=== PATIENT | male | born 1945 | race Caucasian/White ===

== ENCOUNTER 2017-08-09 11:15 | Day surgery (SDC) | payer MEDICARE ==
[~2017-08-09 11:15] MED LIST: Acetaminophen TAB* 325 MG PO PRN; Buffered Lidocaine 0.9% SYRIN* 5 ML/SYR SYRINGE INTRADERM ONE; Buffered Lidocaine 0.9% SYRIN* 5 ML/SYR SYRINGE ONE; Cyclopentolate 1% OPTH.SOL* 2 ML BTL ONE; Ketorolac 0.5% OPHTH (NF) 0.5 % 5 ML BTL ONE; Lidocaine 1% MPF* 2 ML VIAL ONE; Lidocaine 2% EPI 1:200000 MPF* 20 ML VIAL ONE; Neomycin/Polymy/Dex OPTH.SUSP* MAXITROL 0.1% 5 ML ONE; Phenylephrine 2.5% OPTH.SOL* 2 ML BTL ONE; Povidone Iodine 5% OPTH* 30 ML BTL ONE; Proparacaine 0.5% OPHTH.SOL* 15 ML BTL ONE; acetaZOLAMIDE TAB* 250 MG ONE
[2017-08-09] MEDS ORDERED: fentaNYL* 50 MCG/ML 2 ML VIAL (100 MCG VIAL) ONE (14:01)
[2017-08-09] MEDS ORDERED: Midazolam* 1 MG/ML 5 ML VIAL (5 MG) ONE (14:01)
[2017-08-09 14:45] VITALS: BP 114/64
--- NOTE | 2017-08-09 16:52 | OP ---
DATE OF OPERATION: 08/09/2017 - [facility] DATE OF : 1945. SURGEON: Don Cherry M.D. PREOPERATIVE DIAGNOSIS: Cataract right eye. POSTOPERATIVE DIAGNOSIS: Cataract right eye. OPERATIVE PROCEDURE: Phacoemulsification right eye with IOL. DESCRIPTION OF PROCEDURE: The patient was brought to the operating room after being given 1/2% Alcaine with epinephrine drops in the preoperative area. The eye was prepped and draped in the usual sterile fashion. Sterile drape and eyelid speculum were placed. Again, topical 1/2% Alcaine with epinephrine was given. A paracentesis incision was made at the 9 o'clock position with the No.75 blade. Clear cornea incision 2.2 x 2.2-mm was created at the 12 o'clock position starting at the anterior limbus using the 2.2-mm keratome. The anterior chamber was irrigated with 0.4 mL of 1% non-preservative intracameral lidocaine and filled with DisCoVisc. A capsulorrhexis was completed using the cystotome and the Utrata forceps. Hydrodissection was performed with balanced salt solution. The lens nucleus was removed with the Phacoemulsification handpiece without incident. Cortex was removed with the irrigation-aspiration handpiece. The capsular bag was re-inflated using DisCoVisc and an [id number] 20.5 implant was inserted with the shooter, oriented to the 136 degree meridian. Horizontal reference johnson were made with the patient in the seated position in the preoperative area. The irrigation-aspiration handpiece was used to remove all residual DisCoVisc. The eye was refilled with balanced salt solution and the wound checked and found to be watertight. Topical Maxitrol drops were given. [id number]/[facility] #: [id number] [facility]
== END 2017-08-09 15:00 | disposition home or self-care (01) ==
LOC: OREAST 11:15
PROVIDERS: ATTEND Specialist
DX: H25.813 Combined forms of age-related cataract, bilateral (principal); I25.84 Coronary atherosclerosis due to calcified coronary lesion; E78.00 Pure hypercholesterolemia, unspecified; I48.91 Unspecified atrial fibrillation
CPT/HCPCS: A9270-GY; J2250; J3010; V2787

== ENCOUNTER 2017-08-16 08:52 | Day surgery (SDC) | payer MEDICARE ==
[~2017-08-16 08:52] MED LIST changes: -Buffered Lidocaine 0.9% SYRIN* 5 ML/SYR SYRINGE ONE; -Cyclopentolate 1% OPTH.SOL* 2 ML BTL ONE; -Ketorolac 0.5% OPHTH (NF) 0.5 % 5 ML BTL ONE; -Lidocaine 1% MPF* 2 ML VIAL ONE; -Lidocaine 2% EPI 1:200000 MPF* 20 ML VIAL ONE; -Neomycin/Polymy/Dex OPTH.SUSP* MAXITROL 0.1% 5 ML ONE; -Phenylephrine 2.5% OPTH.SOL* 2 ML BTL ONE; -Povidone Iodine 5% OPTH* 30 ML BTL ONE; -Proparacaine 0.5% OPHTH.SOL* 15 ML BTL ONE; -acetaZOLAMIDE TAB* 250 MG ONE
[2017-08-16] MEDS ORDERED: Midazolam* 1 MG/ML 2 ML VIAL (2 MG) ONE (10:30)
[2017-08-16 11:46] VITALS: BP 123/76
[2017-08-16] MEDS ORDERED: Ketorolac 0.5% OPHTH (NF) 0.5 % 5 ML BTL ONE (11:56)
[2017-08-16] MEDS ORDERED: Neomycin/Polymy/Dex OPTH.SUSP* MAXITROL 0.1% 5 ML ONE (11:56)
[2017-08-16] MEDS ORDERED: acetaZOLAMIDE TAB* 250 MG ONE (11:56)
[2017-08-16] MEDS ORDERED: Phenylephrine 2.5% OPTH.SOL* 2 ML BTL ONE (11:56)
[2017-08-16] MEDS ORDERED: Povidone Iodine 5% OPTH* 30 ML BTL ONE (11:56)
[2017-08-16] MEDS ORDERED: Buffered Lidocaine 0.9% SYRIN* 5 ML/SYR SYRINGE ONE (11:56)
[2017-08-16] MEDS ORDERED: Lidocaine 1% MPF* 2 ML VIAL ONE (11:56)
[2017-08-16] MEDS ORDERED: Lidocaine 2% EPI 1:200000 MPF* 20 ML VIAL ONE (11:56)
[2017-08-16] MEDS ORDERED: Cyclopentolate 1% OPTH.SOL* 2 ML BTL ONE (11:56)
[2017-08-16] MEDS ORDERED: Proparacaine 0.5% OPHTH.SOL* 15 ML BTL ONE (11:56)
--- NOTE | 2017-08-16 13:01 | OP ---
DATE OF OPERATION: 08/16/2017 - [facility] DATE OF : 1945. SURGEON: Don Cherry M.D. PREOPERATIVE DIAGNOSIS: Cataract left eye. POSTOPERATIVE DIAGNOSIS: Cataract left eye. OPERATIVE PROCEDURE: Phacoemulsification left eye with IOL. DESCRIPTION OF PROCEDURE: The patient was brought to the operating room after being given 1/2% Alcaine with epinephrine drops in the preoperative area. The eye was prepped and draped in the usual sterile fashion. Sterile drape and eyelid speculum were placed. Again, topical 1/2% Alcaine with epinephrine was given. A paracentesis incision was made at the 3 o'clock position with the No.75 blade. Clear cornea incision 2.2 x 2.2-mm was created at the 6 o'clock position starting at the anterior limbus using the 2.2-mm keratome. The anterior chamber was irrigated with 0.4 mL of 1% non-preservative intracameral lidocaine and filled with DisCoVisc. A capsulorrhexis was completed using the cystotome and the Utrata forceps. Hydrodissection was performed with balanced salt solution. The lens nucleus was removed with the Phacoemulsification handpiece without incident. Cortex was removed with the irrigation-aspiration handpiece. The capsular bag was re-inflated using DisCoVisc and an [id number] implant was inserted with the shooter, oriented to the 45 degree meridian. Horizontal reference johnson were made with the patient in the seated position in the preoperative area. The irrigation-aspiration handpiece was used to remove all residual DisCoVisc. The eye was refilled with balanced salt solution and the wound checked and found to be watertight. Topical Maxitrol drops were given. [id number]/[facility] #: [id number] [facility]
== END 2017-08-16 11:39 | disposition home or self-care (01) ==
LOC: OREAST 08:52
PROVIDERS: ATTEND Specialist
DX: H25.812 Combined forms of age-related cataract, left eye (principal); Z96.1 Presence of intraocular lens; I48.91 Unspecified atrial fibrillation; E78.00 Pure hypercholesterolemia, unspecified; I25.84 Coronary atherosclerosis due to calcified coronary lesion
CPT/HCPCS: A9270-GY; J2250; V2787

== ENCOUNTER 2018-05-06 20:04 | Emergency (ER) | payer MEDICARE ==
[2018-05-06] MEDS ORDERED: HYDROcodone/ACETAMIN 5-325 MG* 1 TAB ONE (20:16)
[2018-05-06 20:18] VITALS: BP 158/97
[2018-05-06] MEDS ORDERED: HYDROcodone/ACETAMIN 5-325 MG* 1 TAB PO ONE (20:21)
--- NOTE | 2018-05-06 20:27 | UC ---
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 THINKS HE HAD LOC BUT NOT SURE FOR HOW LONG. HAS A LACERATION AND SIGNIFICANT SWELLING RIGHT UPPER BROW. PT ENDORSES SIGNIFICANT ALMONTE, NAUSEA, POSTERIOR NECK PAIN. DENIES VISUAL DISTURBANCE. AFTER THE INCIDENT PT DROVE HIMSELF THE 3 MILES FROM THE FARM TO HIS HOUSE, THEN HAD A FRIEND DRIVE HIM HERE TO THE . HAS A H/O AFIB BUT IS NON ADHERENT WITH HIS MEDS. NOT TAKING BLOOD THINNER. UNKNOWN DATE OF LAST TETANUS. 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 HAD THE CURTAIN PIPE IN A VICE TRYING TO STRAIGHTEN IT WHEN IT SLIPPED OUT AND STRUCK HIM ON THE HEAD. NEXT THING HE KNEW HE WAS WAKING UP ON THE GROUND. - History Of Current Complaint Chief Complaint: UCHeadInjury Stated Complaint: HEAD INJURY Time Seen by Provider: 05/06/18 20:08 Hx Obtained From: Patient Onset/Duration: Sudden Onset, Lasting Minutes, Still Present Severity Currently: Moderate Severity Initially: Moderate Pain Intensity: 8 Pain Scale Used: 0-10 Numeric Character: Dull, Throbbing Aggravating Factor(s): Nothing Alleviating Factor(s): Nothing Associated Signs And Symptoms: Positive: LOC Duration Unknown, Neck Pain, Nausea. Negative: Confusion, Memory Loss, Seizure - Allergies/Home Medications Allergies/Adverse Reactions: Allergies Allergy/AdvReac Type Severity Reaction Status Date / Time No Known Allergies Allergy Verified 05/06/18 20:18 PMH/Surg Hx/FS Hx/Imm Hx Cardiovascular History: Atrial Fibrillation - Surgical History Surgical History: None Surgery Procedure, Year, and Place: BLADDER LESIONS REMOVED - Family History Known Family History: Positive: Hypertension - Social History Alcohol Use: Daily Alcohol Amount: 1.5 DRINKS PER DAY Substance Use Type: Marijuana Smoking Status (MU): Never Smoked Tobacco Have You Smoked in the Last Year: No Review of Systems Constitutional: Negative Skin: Other - LACERATION Respiratory: Negative Cardiovascular: Negative Gastrointestinal: Nausea Musculoskeletal: Arthralgia - NECK PAIN, Decreased ROM - NECK Neurological: Headache All Other Systems Reviewed And Are Negative: Yes Physical Exam Triage Information Reviewed: Yes Appearance: Ill-Appearing - MILDLY, Pain Distress - MODERATE, Signs of Trauma - BLEEDING LACERATION RIGHT BROW Vital Signs: Initial Vital Signs Temp 98.7 F 05/06/18 20:11 Pulse 67 05/06/18 20:11 Resp 17 05/06/18 20:11 BP 158/97 05/06/18 20:11 Pulse Ox 99 05/06/18 20:11 Vital Signs Reviewed: Yes Eyes: Positive: Conjunctiva Clear ENT: Positive: Hearing grossly normal, TMs normal, Other - CRUSTED BLOOD RIGHT NARIS. NO ACTIVE BLEEDING Neck: Positive: Other: - IN A COLLAR Respiratory Exam: Normal Cardiovascular Exam: Normal Cardiovascular: Positive: RRR Abdomen Description: Positive: Soft Musculoskeletal: Positive: ROM Limited @ - NECK, Other: - TTP RIGHT ORBITAL BONES Neurological: Positive: Alert Psychological: Positive: Age Appropriate Behavior Skin: Positive: Other - 3.2CM LINEAR LACERATION RIGHT BROW WITH SURROUNDING SOFT TISSUE SWELLING. Diagnostics - Radiology C-SPINE XRAY 1V Xray Interpretation: Positive (See Comments) - THE CERVICAL VERTEBRA APPEARS SLIGHTLY ANTERIOR RELATIVE TO THE POSITION OF THE CLIVUS AT THE SKULL BASE POSSIBLY REPRESENTING AN INJURY AT THE CRANIOCERVICAL JUNCTION. RECOMMEND A CT OF THE CERVICAL SPINE FOR FURTHER EVALUATION. Radiology Interpretation Completed By: Radiologist Head Injury Course/Dx - Course Course Of Treatment: C-SPINE UNABLE TO BE CLEARED WITHOUT CT SCAN. RECOMMENDED PATIENT GO TO THE [facility] [place] ED BY AMBULANCE DUE TO CONCERN FOR C-SPINE FRACTURE. PT DECLINES AMBULANCE TRANSFER. ADVISED THAT HE COULD BE RISKING WORSENING OF HIS CONDITION THAT COULD POSE A THREAT TO LIFE, HEALTH AND MEDICAL SAFETY. PT COULD HAVE PARALYSIS. PT VERBALIZES UNDERSTANDING AND CONTINUES TO DECLINE AMBULANCE TRANSFER. STATES HE WILL GO BY PRIVATE CAR. SIGNED OUT AMA. COLLAR IN PLACE. RECEIVED HYDROCODONE/APAP 5/325 AND TDAP BOOSTER IN UC. - Differential Dx/Diagnosis Provider Diagnoses: 1. NECK INJURY - POSSIBLE FRACTURE. 2. CONCUSSION. 2. LACERATION RIGHT BROW - NOT REPAIRED. 4. TDAP BOOSTER - Physician Notification/Consults Discussed Patient Care With: Marcy Quinonez - TO [facility] [place] [place] ED BY PRIVATE CAR - PT SIGNING OUT AMA Time Discussed With Above Provider: 09:47 Instructed by Provider To: MD Will See In ED Discharge - Sign-Out/Discharge Documenting (check all that apply): Discharge/Admit/Transfer - Discharge Plan Condition: Guarded Disposition: AGAINST MEDICAL ADVICE Referrals: Malcolm Pisano MD [Primary Care Provider] - - Billing Disposition and Condition Condition: GUARDED Disposition: Against Medical Advice
[2018-05-06] MEDS ORDERED: Tetan/Diph/Pertus SYR(Tdap)* 0.5 ML SYR(BOOSTRIX) use SYR IM ONE (20:30)
--- NOTE | 2018-05-06 21:31 | RAD ---
INDICATION: Head injury, neck pain. COMPARISON: There are no prior studies available for comparison. TECHNIQUE: 2 lateral films of the cervical spine were obtained. FINDINGS: C1-C7 are visualized. There is straightening of the cervical spine with loss of the normal cervical lordosis. No fracture is seen although the cervical vertebra appears slightly anterior relative to the position of the clivus and therefore an injury at the craniocervical junction cannot be excluded. Recommend a CT of the cervical spine for further evaluation. There is moderate to severe disc space narrowing and moderate uncinate process spurring present at the C3-C4, C4-C5, C5-C6 and C6-C7 levels consistent with moderate to severe degenerative disc disease. There are large bridging anterior osteophytes at the C4-C5 level. The results of this exam were discussed with the referring clinician. IMPRESSION: THE CERVICAL VERTEBRA APPEARS SLIGHTLY ANTERIOR RELATIVE TO THE POSITION OF THE CLIVUS AT THE SKULL BASE POSSIBLY REPRESENTING AN INJURY AT THE CRANIOCERVICAL JUNCTION. RECOMMEND A CT OF THE CERVICAL SPINE FOR FURTHER EVALUATION.
== END 2018-05-06 22:00 | disposition left against medical advice (07) ==
LOC: UCEAST 20:04
DX: S19.9XXA Unspecified injury of neck, initial encounter (principal); S06.0X9A Concussion with loss of consciousness of unspecified duration, initial encounter; S01.111A Laceration without foreign body of right eyelid and periocular area, initial encounter; W22.8XXA Striking against or struck by other objects, initial encounter; Y93.89 Activity, other specified; Y92.79 Other farm location as the place of occurrence of the external cause; Z23 Encounter for immunization; I48.91 Unspecified atrial fibrillation; Z82.49 Family history of ischemic heart disease and other diseases of the circulatory system
CPT/HCPCS: 72020; 90715; 99212; G0463

== ENCOUNTER 2018-05-06 22:06 | Emergency (ER) | payer MEDICARE ==
[2018-05-06] MEDS ORDERED: Ibuprofen ADULT LIQ* 600 MG/30 ML UDC PO ONE (22:49)
--- NOTE | 2018-05-07 00:42 | ED ---
Laceration/Wound HPI - HPI Summary HPI Summary: Patient is a 72-year-old male presenting to the ED from with complaint of laceration just above the right eye, with associated bruising and swelling. He states he was sent over here for a CT scan. 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 He states he had a brief LOC lasting only a few seconds and also is endorsing headache and neck pain. Bleeding is well controlled on arrival. History of A. fib, but is medication noncompliant. - History of Current Complaint Stated Complaint: HEAD/NECK INJURY Hx Obtained From: Patient Onset/Duration: Sudden Onset Aggravating: Movement Alleviating: Nothing Timing: Constant Onset Severity: Mild Current Severity: Mild Pain Intensity: 5 Pain Scale Used: 0-10 Numeric Associated Signs & Symptoms: Negative - Allergy/Home Medications Allergies/Adverse Reactions: Allergies Allergy/AdvReac Type Severity Reaction Status Date / Time No Known Allergies Allergy Verified 05/06/18 20:18 PMH/Surg Hx/FS Hx/Imm Hx Previously Healthy: Yes Endocrine/Hematology History: Denies: Hx Diabetes Cardiovascular History: Reports: Hx Coronary Artery Disease - SOME BLOCKAGES-, 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, Other Cardiovascular Problems/Disorders - HX AFIB Denies: Hx Congestive Heart Failure, Hx Hypertension, Hx Pacemaker/ICD Respiratory History: Reports: Hx Sleep Apnea Sensory History: Reports: Hx Cataracts - BILATERAL, Hx Contacts or Glasses - READING Denies: Hx Hearing Aid Opthamlomology History: Reports: Hx Cataracts - BILATERAL, Hx Contacts or Glasses - READING - Surgical History Surgery Procedure, Year, and Place: BLADDER LESIONS REMOVED Hx Anesthesia Reactions: Yes - TOOK A LONG TIME TO RECOVER Infectious Disease History: No Infectious Disease History: Denies: Traveled Outside the [place] in Last 30 Days - Family History Known Family History: Positive: Hypertension - Social History Occupation: Employed Full-time Lives: With Family Alcohol Use: Daily Alcohol Amount: 1.5 DRINKS PER DAY Hx Substance Use: Yes Substance Use Type: Reports: Marijuana Hx Tobacco Use: No Smoking Status (MU): Never Smoked Tobacco Have You Smoked in the Last Year: No Review of Systems Constitutional: Negative Negative: Fever, Chills, Skin Diaphoresis Negative: Palpitations, Chest Pain Negative: Shortness Of Breath, Cough Genitourinary: Negative Positive: no symptoms reported, see HPI Positive: Arthralgia - posterior cervical spine tenderness Positive: Other - 2.5cm laceration Positive: Headache Psychological: Normal All Other Systems Reviewed And Are Negative: Yes Physical Exam Triage Information Reviewed: Yes Vital Signs On Initial Exam: Initial Vitals Temp Pulse Resp BP Pulse Ox 98.3 F 56 20 184/84 98 05/06/18 22:07 05/06/18 22:07 05/06/18 22:07 05/06/18 22:07 05/06/18 22:07 Vital Signs Reviewed: Yes Appearance: Positive: Well-Appearing, Well-Nourished Skin: Positive: Warm, Skin Color Reflects Adequate Perfusion Head/Face: Positive: Normal Head/Face Inspection Neck: Positive: Supple, No Lymphadenopathy Respiratory/Lung Sounds: Positive: Clear to Auscultation, Breath Sounds Present Cardiovascular: Positive: RRR, Pulses are Symmetrical in both Upper and Lower Extremities Musculoskeletal: Positive: Normal, Strength/ROM Intact, Pain @ - Posterior cervical spine tenderness Neurological: Positive: Sensory/Motor Intact, Alert, Oriented to Person Place, Time, Speech Normal Psychiatric: Positive: Affect/Mood Appropriate AVPU Assessment: Alert Diagnostics - Vital Signs Vital Signs Temp Pulse Resp BP Pulse Ox 05/06/18 22:07 98.3 F 56 20 184/84 98 - Laboratory Lab Statement: Any lab studies that have been ordered have been reviewed, and results considered in the medical decision making process. Laceration Repair Course/Dx - Course Course Of Treatment: Patient was given a Vicodin prior to discharge from . He signed out AMA. He arrives in a cervical collar. Maxillofacial, cervical spine, brain CT obtained all within WNL. Laceration just above the right eye measuring 2.5 cm in length, 0.5 cm in depth and approximately 0.5 cm in width. Time out obtained. Lidocaine without epi used as local anesthetic. Patient tolerated well. 1 mL used. 7, 50 sutures placed using simple interrupted technique. Suture removal in 6-7 days. No antibiotics required. He is given Toradol for at home for any headaches. Discussed concussive symptoms and given him brain rest if symptoms persist. - Clinical Impression Provider Diagnoses: Laceration Discharge - Sign-Out/Discharge Documenting (check all that apply): Discharge/Admit/Transfer - Discharge Plan Condition: Stable Disposition: HOME Prescriptions: Ketorolac TAB * [Toradol TAB *] 10 mg PO Q6H #8 tab Patient Education Materials: Laceration (ED) Referrals: Malcolm Pisano MD [Primary Care Provider] - Additional Instructions: Toradol up to four times daily as needed for pain Sutures out in 5-7 days Leave open to air If you develop concussive like symptoms, brain rest as much as possible Follow up with your PCP - Billing Disposition and Condition Condition: STABLE Disposition: Home
[2018-05-07 00:46] VITALS: BP 145/78
--- NOTE | 2018-05-07 07:35 | RAD ---
HISTORY: LOC with head injury COMPARISONS: None TECHNIQUE: Multiple contiguous axial CT scans were obtained of the head without intravenous contrast. FINDINGS: HEMORRHAGE/INFARCT: There is no hemorrhage or acute infarct. MASSES/SHIFT: There is no mass or shift. EXTRA-AXIAL SPACES: There are no extra-axial fluid collections. SULCI AND VENTRICLES: The sulci and ventricles are normal in size and position for the patient's stated age. CEREBRUM: There are no focal parenchymal abnormalities. BRAINSTEM: There are no focal parenchymal abnormalities. CEREBELLUM: There are no focal parenchymal abnormalities. VESSELS: There is calcification of the cavernous segments of the internal carotid arteries bilaterally. PARANASAL SINUSES: The paranasal sinuses are clear. ORBITS: The orbits are unremarkable. BONES AND SOFT TISSUE: No bone or soft tissue abnormalities are noted. OTHER: None IMPRESSION: NO ACUTE INTRACRANIAL PATHOLOGY.
--- NOTE | 2018-05-07 07:36 | RAD ---
HISTORY: LOC with neck pain after head injury COMPARISONS: None TECHNIQUE: Multiple contiguous axial CT scans were obtained of the cervical spine without intravenous contrast, with coronal and sagittal multiplanar reformations. FINDINGS: BRAIN: The visualized brain is unremarkable CENTRAL CANAL: Evaluation of the central canal is limited on CT technique; however, there is no obvious canalicular mass or epidural hemorrhage. ALIGNMENT: There is straightening with mild reversal of the normal cervical lordosis. VERTEBRAL BODIES: There is multilevel anterolateral marginal osteophyte formation. There is no displaced fracture. JOINTS: There is no subluxation or dislocation. There is uncovertebral and facet osteoarthritis. MUSCULATURE: Unremarkable INTERVERTEBRAL DISCS: There is diffuse loss of intervertebral disc height. AXIAL IMAGES: On axial views, there is diffuse moderate neural foraminal narrowing bilaterally. There is no osseous central canal stenosis. SOFT TISSUES: The visualized soft tissues of the neck are unremarkable. The prevertebral fat stripe is preserved. OTHER: None. IMPRESSION: 1. DEGENERATIVE DISC DISEASE AND OSTEOARTHRITIS. 2. NO ACUTE OSSEOUS INJURY TO THE CERVICAL SPINE.
--- NOTE | 2018-05-07 07:40 | RAD ---
INDICATION: Loss of consciousness with head injury. COMPARISON: There are no prior studies available for comparison. TECHNIQUE: Contiguous axial sections of the axial images of the facial bones were obtained and reconstructed in the coronal and sagittal planes. FINDINGS: There is a focal soft tissue defect present in the scalp adjacent to the lateral aspect of the right frontal bone. No fracture is seen in that region. The meade of the orbits and maxillary sinuses appear intact. The zygomatic arches appear intact. There is no evidence for a fracture of the mandible. The nasal bones appear intact. There is moderate to severe deviation of the nasal septum toward the right side. The pterygoid plates appear intact. There is mucosal thickening within the ethmoid maxillary and sphenoid sinuses. The frontal sinuses are hypoplastic. IMPRESSION: 1. SOFT TISSUE LACERATION TO THE SCALP ADJACENT TO THE RIGHT FRONTAL BONE. NO FRACTURE IS SEEN. 2. FINDINGS SUGGESTIVE OF CHRONIC SINUSITIS.
== END 2018-05-07 00:45 | disposition home or self-care (01) ==
LOC: ED 22:06
DX: S06.9X1A Unspecified intracranial injury with loss of consciousness of 30 minutes or less, initial encounter (principal); S01.01XA Laceration without foreign body of scalp, initial encounter; W22.8XXA Striking against or struck by other objects, initial encounter; Y92.9 Unspecified place or not applicable; I48.91 Unspecified atrial fibrillation; Z91.14 Patient's other noncompliance with medication regimen
CPT/HCPCS: 12001; 70450; 70486; 72125; 99282; A9270-GY

== ENCOUNTER 2019-07-11 11:53 | Observation (INO) | payer MEDICARE ==
--- NOTE | 2019-07-11 12:08 | ED ---
HPI Chest Pain - HPI Summary HPI Summary: 73 year old M presenting to [facility] from his primary care provider's office accompanied by ex- with a chief complaint of non-radiating chest pain that began yesterday while patient was unloading grain. The patient rates the pain 5/ 10 in severity. Symptoms aggravated by nothing. Symptoms alleviated by nothing. Patient reports non-productive cough. Patient denies shortness of breath, nausea , diaphoresis, pain or swelling in bilateral legs. Patient denies recent long distance traveling. Patient has hx atrial fibrillation. Last stress test was a while ago per patient. Patient denies hx blood clots, hx COPD. Patient does not take any daily medications. Patient states he has Fhx MD in his father at 47 y/ o. Denies smoking cigarettes, reports daily alcohol and occasional marijuana. 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 Medications reviewed. Allergies noted. - History of Current Complaint Chief Complaint: EDChestPainROMI Time Seen by Provider: 07/11/19 12:01 Hx Obtained From: Patient Onset/Duration: Started Days Ago - 1, Still Present Timing: Constant Current Severity: Moderate Pain Intensity: 5 Pain Scale Used: 0-10 Numeric Chest Pain Radiates: No Aggravating Factor(s): Nothing Alleviating Factor(s): Nothing Associated Signs and Symptoms: Positive: Negative - shortness of breath, nausea , diaphoresis, pain or swelling in bilateral legs, Other: - non-productive cough - Allergy/Home Medications Allergies/Adverse Reactions: Allergies Allergy/AdvReac Type Severity Reaction Status Date / Time No Known Allergies Allergy Verified 07/11/19 12:00 Home Medications: Home Medications NK [No Home Medications Reported] 07/11/19 [History Confirmed 07/11/19] PMH/Surg Hx/FS Hx/Imm Hx Endocrine/Hematology History: Denies: Hx Diabetes Cardiovascular History: Reports: Hx Coronary Artery Disease - SOME BLOCKAGES-, 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, Other Cardiovascular Problems/Disorders - HX AFIB Denies: Hx Congestive Heart Failure, Hx Hypertension, Hx Pacemaker/ICD Respiratory History: Reports: Hx Sleep Apnea Sensory History: Reports: Hx Cataracts - BILATERAL, Hx Contacts or Glasses - READING Opthamlomology History: Reports: Hx Cataracts - BILATERAL, Hx Contacts or Glasses - READING - Surgical History Surgery Procedure, Year, and Place: BLADDER LESIONS REMOVED Hx Anesthesia Reactions: Yes - TOOK A LONG TIME TO RECOVER Infectious Disease History: No Infectious Disease History: Denies: Traveled Outside the [place] in Last 30 Days - Family History Known Family History: Positive: Cardiac Disease - MD father at 47 y/o, Hypertension - Social History Alcohol Use: Daily Alcohol Amount: 1.5 DRINKS PER DAY Hx Substance Use: Yes Substance Use Type: Reports: Marijuana Hx Tobacco Use: No Smoking Status (MU): Never Smoked Tobacco Have You Smoked in the Last Year: No Review of Systems Negative: Skin Diaphoresis Positive: Chest Pain Positive: Cough. Negative: Shortness Of Breath Negative: Nausea Musculoskeletal: Negative - pain or swelling in bilateral legs All Other Systems Reviewed And Are Negative: Yes Physical Exam - Summary Physical Exam Summary: Constitutional: Well-developed, Well-nourished, Alert. (-) Distressed Skin: Warm, Dry HENT: Normocephalic; Atraumatic Eyes: Conjunctiva normal Neck: Musculoskeletal ROM normal neck. (-) JVD, (-) Stridor, (-) Tracheal deviation Cardio: Rhythm regular, rate normal, Heart sounds normal; Intact distal pulses; The pedal pulses are 2+ and symmetric. Radial pulses are 2+ and symmetric. (-) Murmur Pulmonary/Chest wall: Effort normal. (-) Respiratory distress, (-) Wheezes, (-) Rales Abd: Soft, (-) tenderness, (-) Distension, (-) Guarding, (-) Rebound Musculoskeletal: (-) Edema Lymph: (-) Cervical adenopathy Neuro: Alert, Oriented x3 Psych: Mood and affect Normal Triage Information Reviewed: Yes Vital Signs On Initial Exam: Initial Vitals Temp Pulse Resp BP Pulse Ox 97.9 F 78 16 137/86 100 07/11/19 11:56 07/11/19 11:56 07/11/19 11:56 07/11/19 11:56 07/11/19 11:56 Vital Signs Reviewed: Yes Diagnostics - Vital Signs Vital Signs Temp Pulse Resp BP Pulse Ox 07/11/19 11:56 97.9 F 78 16 137/86 100 - Laboratory Result Diagrams: 07/11/19 12:19 07/11/19 12:19 Lab Statement: Any lab studies that have been ordered have been reviewed, and results considered in the medical decision making process. - Radiology CXR Radiology Interpretation Completed By: Radiologist Summary of Radiographic Findings: NO EVIDENCE FOR ACTIVE CARDIOPULMONARY DISEASE. ED physician has reviewed this report. - EKG 1153 Cardiac Rate: NL - 69 BPM EKG Rhythm: Sinus Rhythm Summary of EKG Findings: T wave inversions in II, III, AVF, V4-V6. Minimal ST elevations in V2-V3 1215 Cardiac Rate: NL - 62 BPM EKG Rhythm: Sinus Rhythm Summary of EKG Findings: Unchanged from initial Re-Evaluation - Re-Evaluation First Eval Re-Evaluation Time: 12:41 Change: Improved Comment: chest pain relieved with 1 nitroglycerin Second Eval Re-Evaluation Time: 13:02 Change: Unchanged Comment: patient is agreeable to admission Chest Pain Course/Dx - Course Course Of Treatment: Patient is here with chest pain. Patient has new EKG changes from his prior EKG 10 years ago with T-wave inversions in the lateral and inferior leads. Patient's pain relieved with nitroglycerin. Patient was given spelled. Patient had negative chest x-ray and troponin. Patient negative blood work. Patient has no PE risk factors and has able score of 0. Patient was admitted to medicine for further workup - Diagnoses Provider Diagnoses: Acute chest pain, Abnormal ECG - Provider Notifications Discussed Care Of Patient With: Lilo Pereira Time Discussed With Above Provider: 13:00 Instructed by Provider To: Other - Dr. Pereira, hospitalist, agrees to admit patient Discharge ED - Sign-Out/Discharge Documenting (check all that apply): Patient Departure - Admit Patient Received Moderate/Deep Sedation with Procedure: No - Discharge Plan Condition: Stable Disposition: ADMITTED TO [facility] - Billing Disposition and Condition Condition: STABLE Disposition: Admitted to [facility] - Attestation Statements Document Initiated by Miae: Yes Documenting Scribe: Riddhi Rios Provider For Whom Chata is Documenting (Include Credential): Michael Madrid MD Scribe Attestation: Riddhi Ochoa, scribed for Michael Madrid MD on 07/11/19 at 1822. Scribe Documentation Reviewed: Yes Provider Attestation: The documentation as recorded by the Riddhi hdz accurately reflects the service I personally performed and the decisions made by ma, Michael Madrid MD Status of Scribe Document: Viewed
[2019-07-11] MEDS ORDERED: Aspirin 81 mg CHEW TAB* 81 MG TAB.CHEW PO ONE (12:11)
[2019-07-11] MEDS ORDERED: Nitroglycerin TAB 0.4 MG* 0.4 MG TAB SL ONE (12:11)
[2019-07-11 12:29] LABS: ABS Basophils 0.1 10^3/ul (0-0.2); ABS Lymphocytes 1.5 10^3/ul (1.0-4.8); ABS Monocytes 0.6 10^3/ul (0-0.8); ABS Neutrophils 4.7 10^3/ul (1.5-7.7); Eosinophil % 0.6 %; Hematocrit 44 % (42-52); Hemoglobin 15.1 g/dL (14.0-18.0); Lymphocyte % 22.1 %; Mean Corpuscular HGB Conc 34 g/dL (31-36); Mean Corpuscular Hemoglobin 32 pg (27-31); Mean Corpuscular Volume 93 fL (80-94); Mean Platelet Volume 7.8 fL (7.4-10.4); Platelet Count 228 10^3/uL (150-450); Red Blood Count 4.77 10^6 /uL (4.18-5.48); Red Cell Distribution Width 14 % (10-15)
[2019-07-11 12:36] LABS: INR 1.08 (0.82-1.09)
[2019-07-11 12:46] LABS: Albumin 4.2 g/dL (3.2-5.2); Albumin/Globulin Ratio 1.6 (1-3); BUN/Creatinine Ratio 25.3 (8-20); Calcium 9.2 mg/dL (8.6-10.3); EGFR African American 99.1 (>60); EGFR Non-African American 81.9 (>60); Globulin 2.6 g/dL (2-4); Potassium 3.9 mmol/L (3.5-5.0); Total Bilirubin 0.8 mg/dL (0.2-1.0); Total Protein 6.8 g/dL (6.4-8.9)
[2019-07-11] MEDS ORDERED: Acetaminophen TAB* 325 MG PO PRN (13:06)
[2019-07-11] MEDS ORDERED: Al Hydrox/Mg Hydrox/Simet LIQ* 30 ML UDC PO PRN (13:06)
[2019-07-11] MEDS ORDERED: Calcium Carbonate CHEW TAB* 500 MG (TUMS) PO PRN (14:17)
--- NOTE | 2019-07-11 15:40 | HP ---
CC: Dr. Pisano * HISTORY AND PHYSICAL: DATE OF ADMISSION: 07/11/19 PRIMARY CARE PROVIDER: Dr. Pisano. CHIEF COMPLAINT: Chest pain. HISTORY OF PRESENT ILLNESS: Sahil Maxwell is a 73-year-old organic sotomayor who does not take any medications and goes to see a doctor sporadically. The patient has a history of paroxysmal atrial fibrillation, for which he was seen in the hospital in 2008. He never followed up with a knowledge architect and he still states that from time to time he has palpitations and they usually are exertional and they resolve spontaneously within minutes. The patient also had been having "chest pains." The chest pain he describes as substernal burning that happens in different circumstances, sometimes it happens when he works, but also happens when he eats or after eating. Last night, it happened after eating. It also occurred together with him having nosebleed. The family was concerned that maybe his blood pressure was high. He went to see his primary care provider today who sent him to the ED for evaluation. Here, the patient had been normotensive and his nosebleed resolved. His EKG showed chronically reversed T waves in the lateral leads. The ED provider recommended for the patient to stay overnight for stress test. PAST MEDICAL HISTORY: 1. History of paroxysmal atrial fibrillation, not on anticoagulation. In 2008 , when the patient was evaluated for atrial fibrillation, he spontaneously converted. 2. History of cataract surgery in the past. MEDICATIONS: None. ALLERGIES: No known drug allergies. SOCIAL HISTORY: The patient is an organic sotomayor. His son Enrique Maxwell is his surrogate. The patient denies any tobacco use. He smokes occasionally marijuana, and he drinks an occasional beer. He is a full code. FAMILY HISTORY: Notable for the patient's father with sudden at the age of 47, autopsy was not performed and cause of was not determined. REVIEW OF SYSTEMS: Please see history of present illness. All the remaining 12 systems were reviewed with the patient and were otherwise negative. PHYSICAL EXAMINATION GENERAL: The patient is a very pleasant 73-year-old male who is in no acute distress, alert, awake, oriented x3. VITAL SIGNS: Blood pressure 124/77, heart rate of 68 and regular, respiratory rate 13, oxygen saturation 97% on room air, temperature 98.3. HEENT: Head: Atraumatic, normocephalic. Eyes: Pupils are equal, reactive to light and accommodation. Oropharynx clear. Mucosa moist. NECK: Supple. No JVD, no bruits bilaterally. RESPIRATORY: Clear to auscultation bilaterally. CARDIOVASCULAR: Regular rate and rhythm. No murmurs. ABDOMEN: Soft, nontender. Bowel sounds are present in all 4 quadrants. EXTREMITIES: There is no edema. Pulses are +2 bilaterally. No clubbing or cyanosis. NEUROLOGIC: On neuro evaluation, speech is clear. Cranial nerves II through XII grossly intact. Motor strength is 5/5 bilaterally. SKIN: On evaluation of the skin, no ecchymotic areas or rashes noted. DIAGNOSTIC STUDIES/LAB DATA: Laboratory evaluation showed white blood cell count of 7.0, hemoglobin of 15.1, hematocrit 44, and platelets 228. Sodium 138 , potassium 3.9, chloride 106, carbon dioxide 22, BUN 23, creatinine 0.9. Liver function tests unremarkable. Troponin of 0. The patient's EKG shows normal sinus rhythm with a heart rate of 62 beats per minute with negative T waves in leads V5 and V6, comparable to prior EKG from 2008. Portable chest x-ray, impression: "No evidence of active cardiopulmonary disease." ASSESSMENT AND PLAN: 1. In regards to the patient's chest pain, it is possible that chest pain is GI related. So far his workup is unremarkable. Otherwise though the patient is a rather vague historian and it is possible that he underestimates the amount of pain he actually had been having. Currently, he is chest pain free. The patient is going to be placed on telemetry monitored bed with stress test in the morning. His troponins continued to be negative. Baby aspirin is going to be started on a daily basis. 2. For DVT prophylaxis, the patient is going to be placed on heparin subcutaneously. 3. The patient's code status is full. His surrogate is his son. TIME SPENT: Approximately 62 minutes were spent on admission of this patient, more than half that time was spent [id number] with the patient during the interview and physical exam. [id number]/[facility] #: [id number] [facility]ENT[facility]ona
[2019-07-11] MEDS: Heparin VIAL(*) 5000 UNITS/ML VIAL (FIVE THOUSAND) SUBCUT SCH ×2 (15:43→21:34)
[2019-07-12] MEDS: Heparin VIAL(*) 5000 UNITS/ML VIAL (FIVE THOUSAND) SUBCUT SCH (05:58)
[2019-07-12] MEDS ORDERED: Aspirin 81 mg CHEW TAB* 81 MG TAB.CHEW PO SCH (09:00)
[2019-07-12 12:26] VITALS: BP 117/64
--- NOTE | 2019-07-12 13:08 | DS ---
CC: Dr. Pisano * DISCHARGE SUMMARY: DATE OF ADMISSION: 07/11/19 DATE OF DISCHARGE: 07/12/19 PRIMARY CARE PROVIDER: Dr. Pisano. DISCHARGE DIAGNOSES: Chest pain, likely noncardiac with low probability cardiac stress test documented on 07/12/19. DISPOSITION AT DISCHARGE: Home. CONDITION AT DISCHARGE: Stable. DIET AT DISCHARGE: Regular. DIAGNOSTIC STUDIES/LAB DATA: Laboratory values throughout the patient's hospital stay included troponins that were 0 throughout the hospital stay. The patient's cardiac stress test, the nuclear portion, impression: "No evidence of stress-induced myocardial ischemia or presence of an infarct. Hypokinesia of the septum. Normal range estimated left ventricular ejection fraction and end diastolic volume. The EF was noted to be 59%." HOSPITALIZATION COURSE: Sahil Maxwell is a 73-year-old male with history of paroxysmal atrial fibrillation, who is an organic sotomayor, and he does not see physicians that often. He came into the hospital after he was noted to have frequent nosebleeds outpatient and substernal chest pressure. "The family made him come in" since the thought was that maybe the nosebleeds are related to increased blood pressure. His blood pressures had been in the one teens to 120s throughout his hospital stay. He did have a little bit of epistaxis in the morning on the day of discharge, but that resolved spontaneously. He denies any headaches. His stress test was noted to be negative for myocardial ischemia or reversible defects. Nevertheless, his venous EKG is abnormal with upsloping of ST segment in septal leads and negative T waves in the lateral leads, which is chronic for the patient and comparable to EKG from 2008. The patient no longer experiences chest pain and he is going to be discharged home with recommendation to follow up with Dr. Pisano in approximately 4 to 7 days. The patient is advised to use Tums as needed if substernal pressure recurs and if that does not resolve, to come into the ED for further evaluation. PHYSICAL EXAM AT DISCHARGE: Unchanged from admission. DISPOSITION AT DISCHARGE: To home. CONDITION AT DISCHARGE: Stable. [id number]/[facility] #: [id number] MTDRhona
== END 2019-07-12 12:45 | disposition home or self-care (01) ==
LOC: ED 11:53 → MEDTELE 13:06
PROVIDERS: ADMIT Internal Medicine; ATTEND Internal Medicine
DX: R07.9 Chest pain, unspecified (principal); I48.0 Paroxysmal atrial fibrillation; R06.2 Wheezing; I25.10 Atherosclerotic heart disease of native coronary artery without angina pectoris; G47.30 Sleep apnea, unspecified; R94.31 Abnormal electrocardiogram [ECG] [EKG]
CPT/HCPCS: 36415; 71045; 78452; 80053; 84484; 85025; 85610; 93005; 93017; 99284; A9270-GY; A9502; G0378